=== PATIENT | male | born 1995 | race Two or more races ===

== ENCOUNTER 2018-11-11 21:01 | Emergency (ER) | payer SELFPAY ==
[~2018-11-11] VITALS: Ht 175.3 cm; Wt 70.3 kg
--- NOTE | 2018-11-11 22:32 | RAD ---
RS Compliance Statement: One or more of the following individualized dose reduction techniques were utilized for this examination: 1. Automated exposure control 2. Adjustment of the mA and/or kV according to patient size 3. Use of iterative reconstruction technique CT HEAD AND MAXILLOFACIAL WITHOUT CONTRAST History: nasal injury, Comparison: None. Procedure: Axial images are obtained of the head from the skull base through the vertex without IV contrast. Helical CT imaging of the facial bones is performed without IV contrast. Findings: The ventricles and sulci are normal for the patient's age. No mass-effect, midline shift, hemorrhage or obvious acute infarction is identified. Basilar cisterns are patent. Bone windows demonstrate no significant calvarial abnormality. Acute traumatic comminuted bilateral nasal bone fractures. The nasal bone fractures are deviated to the left. The right is fractured in at least 3 spots, image 34. There are at least 3 fractures of the left nasal bone. There is subcutaneous air superficial to the right nasal bone. Zygomatic arches and pterygoid plates are intact. No acute fracture the mandible is identified. The TMJ appear intact. The globes and orbits are intact. There is rightward deviation of the bony nasal septum. The orbital floors are intact. The visualized paranasal sinuses are clear. Mastoid air cells are well aerated. IMPRESSION: 1. No acute intracranial abnormality. 2. Acute traumatic comminuted bilateral nasal bone fractures. Electronically signed by: Niranjan Isaac MD (11/11/2018 10:30 PM) [facility]
[2018-11-11] MEDS ORDERED: KETAMINE HCL IN NACL, ISO-OSM 50 MG/5 ML SYRINGE IV ONE (23:15)
--- NOTE | 2018-11-11 23:21 | PHYS DOC ---
Past Medical History Past Medical History: No Pertinent History Past Surgical History: No Surgical History Alcohol Use: None Drug Use: None Adult General Chief Complaint Chief Complaint: FACE PROBLEM HPI HPI 23-year-old otherwise healthy male presents tonight with nasal injury. He states he was playing soccer and was kneed in the nose. He states he noticed that his nose is pushed off the left. He denies any loss of consciousness. He denies any headache at this time. He states the pain is tolerable now.[] Review of Systems Review of Systems Constitutional: Denies fever or chills [] Eyes: Denies change in visual acuity, redness, or eye pain [] HENT: Per history of present illness[] Respiratory: Denies cough or shortness of breath [] Cardiovascular: No additional information not addressed in HPI [] GI: Denies abdominal pain, nausea, vomiting, bloody stools or diarrhea [] : Denies dysuria or hematuria [] Musculoskeletal: Denies back pain or joint pain [] Integument: Denies rash or skin lesions [] Neurologic: Denies headache, focal weakness or sensory changes [] Endocrine: Denies polyuria or polydipsia [] All other systems were reviewed and found to be within normal limits, except as documented in this note. Current Medications Current Medications Current Medications Medications (Trade) Dose Ordered Sig/Brittaney Start Time Stop Time Status Last Admin Dose Admin Ketamine HCl (Ketamine) 70 mg 1X ONCE 11/11/18 23:15 11/11/18 23:16 DC 11/11/18 23:37 50 MG Allergies Allergies Allergies Coded Allergies Type Severity Reaction Last Updated Verified No Known Drug Allergies 11/11/18 No Physical Exam Physical Exam Constitutional: Well developed, well nourished, no acute distress, non-toxic appearance. [] HENT: Obvious nasal fracture with deviation to the left.. [] Eyes: PERRLA, EOMI, conjunctiva normal, no discharge. [] Neck: Normal range of motion, no tenderness, supple, no stridor. [] Cardiovascular:Heart rate regular rhythm, no murmur [] Lungs & Thorax: Bilateral breath sounds clear to auscultation [] Abdomen: Bowel sounds normal, soft, no tenderness, no masses, no pulsatile masses. [] Skin: Warm, dry, no erythema, no rash. [] Back: No tenderness, no CVA tenderness. [] Extremities: No tenderness, no cyanosis, no clubbing, ROM intact, no edema. [] Neurologic: Alert and oriented X 3, normal motor function, normal sensory function, no focal deficits noted. [] Psychologic: Affect normal, judgement normal, mood normal. [] Current Patient Data Vital Signs Vital Signs Date Time Temp Pulse Resp B/P (MAP) Pulse Ox O2 Delivery O2 Flow Rate FiO2 11/11/18 21:15 98.7 83 19 158/87 (110) 100 Room Air 98.7 EKG EKG [] Radiology/Procedures Radiology/Procedures [] Impressions: REASON: trauma PROCEDURE: CT HEAD AND MAXILLOFACIAL WO RS Compliance Statement: One or more of the following individualized dose reduction techniques were utilized for this examination: 1. Automated exposure control 2. Adjustment of the mA and/or kV according to patient size 3. Use of iterative reconstruction technique CT HEAD AND MAXILLOFACIAL WITHOUT CONTRAST History: nasal injury, Comparison: None. Procedure: Axial images are obtained of the head from the skull base through the vertex without IV contrast. Helical CT imaging of the facial bones is performed without IV contrast. Findings: The ventricles and sulci are normal for the patient's age. No mass-effect, midline shift, hemorrhage or obvious acute infarction is identified. Basilar cisterns are patent. Bone windows demonstrate no significant calvarial abnormality. Acute traumatic comminuted bilateral nasal bone fractures. The nasal bone fractures are deviated to the left. The right is fractured in at least 3 spots, image 34. There are at least 3 fractures of the left nasal bone. There is subcutaneous air superficial to the right nasal bone. Zygomatic arches and pterygoid plates are intact. No acute fracture the mandible is identified. The TMJ appear intact. The globes and orbits are intact. There is rightward deviation of the bony nasal septum. The orbital floors are intact. The visualized paranasal sinuses are clear. Mastoid air cells are well aerated. IMPRESSION: 1. No acute intracranial abnormality. 2. Acute traumatic comminuted bilateral nasal bone fractures. Course & Med Decision Making Course & Med Decision Making Pertinent Labs and Imaging studies reviewed. (See chart for details) [Procedure: Moderate sedation nasal bone reduction The patient signed all appropriate consents airway was reevaluated ASA one. Patient was given 50 mg of ketamine with excellent sedation he was monitored on the court recording monitor nasal cannula with capnography. After sedation was achieved manual manipulation of the fracture nasal bone was attempted with minimal success I could not completely align central but much improved. Palpating inside of both nares I did not feel or see a septal hematoma or evidence of an open fracture I spoke with ENT and have arranged outpatient follow-up for him this week. Dragon Disclaimer Dragon Disclaimer This electronic medical record was generated, in whole or in part, using a voice recognition dictation system. Departure Departure Impression: Primary Impression: Nasal bones, closed fracture Disposition: HOME, SELF-CARE Condition: IMPROVED Referrals: NO PCP (PCP) Patient Instructions: Nasal Fracture Additional Instructions: He will need to follow up at [facility]. Call Dr. Nikko Hernández at - [phone] Scripts Hydrocodone/Apap 5-325 (NORCO 5-325 TABLET) 1 Each Tablet 1 TAB PO PRN Q6HRS PRN for PAIN, #15 TAB 0 Refills Prov: JACE REGALADO DO 11/12/18 Problem Qualifiers Primary Impression: Nasal bones, closed fracture Encounter type: initial encounter Qualified Codes: S02.2XXA - Fracture of nasal bones, initial encounter for closed fracture JACE REGALADO DO Nov 11, 2018 23:21
[2018-11-11 23:35] VITALS: BP 141/79
[2018-11-12] MEDS ORDERED: HYDR-3164 PO (00:05)
[2018-11-12 00:40] VITALS: BP 138/68
== END 2018-11-12 00:50 | disposition home or self-care (01) ==
LOC: ER 21:01
DX: S02.2XXA Fracture of nasal bones, initial encounter for closed fracture (principal); W50.0XXA Accidental hit or strike by another person, initial encounter; Y93.66 Activity, soccer; Y92.89 Other specified places as the place of occurrence of the external cause; Y99.8 Other external cause status
CPT/HCPCS: 21315; 70450; 70486; 96374; 99284; 99285-25